=== PATIENT | male | born 1960 | race Caucasian/White ===

== ENCOUNTER → 2017-08-09 | Outpatient (CLI) | payer OTHER ==
--- NOTE | 2017-08-10 04:35 | PAP/PSG TECHNICIAN REPORT ---
[facility] Division Superintendent Polysomnogram Report Study name: None Report date: 08/10/2017 Study date: 08/09/2017 Referring Physician: Chelsea Coronel M.D. Name: MICHELLE BROWN Interpreting Physician: Víctor Coronel M.D. Date of : 1960 Division Superintendent: JOSH Mabry. Sex: Male Age: 56 StudyType: PSG Weight: 281 lbs Height: 56 years, Height 5' 10.5" Neck Circum:17inches BMI: 39.75 Medications: Levoxyl 125mcg, Coreg 6.25mg, Prinivil 20mg, Lasix 40mg, Pravachol 40mg, Coumadin 2.5mg, Cyanocobalamin 1000mcg, Coimadin 5mg8 Patient History Study started on room air with no ETCO2 monitoring in room #8. 56 yr old male here tonight for a possible split psg. He was diagnosed with LIANA 15 years ago and discontinued cpap therapy due to being a stomach sleeper, mask leakage and having many arousals. His ESS=2/24. Neck circ=17inches. Parameters Monitored NPSG: E1-M2, E2-M1, Fp1-M2, Fp2-M1, F3-M2, F4-M2, F4-M1, C3-M2, C4-M2, C4-M1, O1-M2, O2-M2, O2-M1, T3-M2, T4-M1, P3-M2, P4-M1, CHIN1, CHIN2, HR, EKG, Legs, PFLOW, SNOR, FLOW, CFLOW, Tidal Volume, THOR, ABDO, SpO2, PLTH, CPRESS, ETCO2 Wave, ETCO2, pH Sleep Architecture Sleep Stages Time at Lights Off 8:45:36 PM STAGES Time (min.) TST (%) Time at Lights On 4:27:36 AM Wake 66.5 -- Total Recording Time (TRT) 462.00 min. N1 15.5 4 Total Sleep Period (TSP) 425.0 min. N2 208.5 53 Total Sleep Time (TST) 395.5min. N3 109.0 28 Awake Time 66.5 min. REM 62.5 16 Wake after Sleep Onset 42.5 min. Sleep Efficiency (SE) 86 % Sleep Onset Latency (SHIRLENE) 24.0 min. Number of Stage 1 Shifts None Awakenings 14 Stage Changes 70 Number of REM periods 10 REM 62.5 16 REM Latency 81.0 min. NREM 333.0 84 Body Position Analysis Supine Right Left Side Prone Vertical Total Sleep Time (min.) 3.4 0.0 0.0 0.00 458.6 0.0 Total Sleep Time (%) 0% 0% 0% 0 100% N/A% Total Sleep Time REM (min.) 0.0 0.0 0.0 None 62.5 0.0 Total Sleep Time NREM (min.) 0.0 0.0 0.0 None 333.0 0.0 Intermittent Wake (min.) 3.4 0.0 0.0 None 63.1 0.0 Total Sleep Period (%) 0% None None None None None Arousals Myoclonus (PLM) * Events Count Index Events Count Index Spontaneous 5 1 Events Awake (PLMW) 29 26.2 Respiratory 4 0.8 Events Asleep w/ Arousal (PLMA) 6 0.9 PLM 5 1 Events Asleep w/o Arousal (PLMS) 81 12.3 Snoring 3 0 Total Asleep 87 13.2 Total 17 3 Total 116 15 Respiratory Analysis * CA OA MA CH H RERA Total Count 0 3 0 0 14 2 17 Index 0.0 0.5 0.0 0 2.1 0 2.9 Mean Duration 0.0 42.4 0.0 0.00 37.3 36.4 38.0 Longest Duration 0.0 45.6 0.0 0.00 0.0 43.0 87.4 Respiratory Event Summary Total Supine ~Supine Right Left Prone REM NREM Apneas Count 3 N/A 3 N/A N/A 3 3 0 Index 0.5 N/A 0 N/A N/A 0 3 0 Hypopneas (4% Desat) Count 14 N/A 14 N/A N/A 14 12 2 Index 2.1 N/A 2 N/A N/A 2.1 11.5 0.4 Apneas & All Hypopneas Count 17 N/A 17 N/A N/A 17 15 2 Index 2.6 N/A 3 N/A N/A 3 14.4 0.4 Respiratory Events (Forensic Materials Engineer+All Hyp+RERA) Count 17 N/A 19 N/A N/A 19 15 2 Index 2.9 N/A 3 N/A N/A 2.9 14.4 0.7 Respiratory Related Arousal Count 4 N/A 5 N/A N/A 5 4 1 Index 0.8 N/A 1 N/A N/A 1 4 0 Snoring Analysis Supine Right Left Prone REM NREM Total Snore duration 47.7 min Snores count N/A N/A N/A 1,914 256 1,658 1,914 Snore mean duration 1.5 Sec Snores index N/A N/A N/A 290 245.8 298.7 290.4 TST with snoring (%) 12.1% Desaturation Event Summary: Minimum %SpO2 Event Count Mean/Min/Max Duration(sec.) Desaturation Index % Time In Bed > 90 20 37.5 / 7.3 / 60.0 2.9 89.6 86 - 90 4 28.6 / 19.0 / 47.5 5.6 9.4 81 - 85 3 17.9 / 5.8 / 25.0 48.9 0.8 76 - 80 0 N/A 0.0 0.1 71 - 75 0 N/A 0.0 0.0 66 - 70 0 N/A 0.0 0.0 61 - 65 0 N/A 0.0 0.0 56 - 60 0 N/A 0.0 0.0 51 - 55 0 N/A 0.0 0.0 < 50 0 N/A 0.0 0.0 Total REM NREM Awake <50% 0.0 min. 0.0 min. 0.0 min. 0.0 min. 51 - 60% 0.0 min. 0.0 min. 0.0 min. 0.0 min. 61 - 70% 0.0 min. 0.0 min. 0.0 min. 0.0 min. 71 - 80% 0.6 min. 0.6 min. 0.0 min. 0.0 min. 81 - 90% 46.5 min. 13.5 min. 27.9 min. 5.1 min. 91 - 100% 407.2 min. 48.4 min. 305.0 min. 53.8 min. Average 93 92 93 93 Minimum SpO2 79 79 85 81 Desaturation Event Index 3.0 13.4 0.7 4.5 # Desat. Events below 89% 10 7 2 1 Time(%) with Saturation below 89% 2.3 2.0 0.3 0.1 Time(min.) with Saturation below 89% 10.6 9.0 1.2 0.5 Time (mins) REM (mins) NREM (mins) % of TST SpO2 Below 90% 12 8 N4 4.2 SpO2 Below 88% 5 0 0 2 Heart Rate Analysis Min (bpm) Max (bpm) Average (bpm) Awake 57 85 67 NREM 35 82 66 REM 56 79 66 Overall 35 82 66 Supplemental O2 Values Minimum O2 level: None Value Start Time End Time Division Superintendent Comments Mr. Brown slept in the prone position. Cardiac arrhythmia noted, please see print out. Some leg movements were noted. No bruxism noted. Snoring was noted and scored as a 3 on a scale of 1 through 5. (0=no snoring, 5=snoring loud enough to be heard through a closed door or down the [address] way) He did not use the restroom during the night. He stated that he slept about the same as usual. He did not qualify for a split night study. The final report will be interpreted and signed by a sleep physician. The completed physician report will then be placed in the patient medical record. Therapy (cm H2O) 0 TIB (min.) 462.0 TST (min.) 395.5 Sleep Onset (min.) 24.0 REM Onset From Sleep (min.) 81.0 Sleep Efficiency % 86 Wakefulness (%) 14 Wakefulness (min.) 66.5 NREM 1 (%) 4 NREM 1 (min.) 15.5 NREM 2 (%) 53 NREM 2 (min.) 208.5 NREM 3 (%) 28 NREM 3 (min.) 109.0 REM (%) 16 REM (min.) 62.5 # Arousals 17 Arousal Index 3 # Snore 1,914 Snore Index 290.4 AHI 2.6 AHI Supine N/A AHI Non-Supine 3 NREM AHI 0.4 REM AHI 14.4 RDI 2.9 # Obstructive Apnea 3 # Central Apnea 0 # Mixed Apnea 0 # Hypopneas 14 RERAs 2 Total Respiratory Events 22 Time Below SpO2 89% (min.) 10.2 Mean NREM SpO2 (%) 93 Mean REM SpO2 (%) 92 Mean Sleep SpO2 (%) 93 Min NREM SpO2 (%) 85 Min REM SpO2 (%) 79 Position Supine (min.) 3.4 Position Non-supine (min.) 395.5 LM Index Sleep 13.2 LM Index NREM 14.8 LM Index REM 4.8 Mean Heart Rate (bpm) 66 Min Heart Rate (bpm) 35
--- NOTE | 2017-08-13 17:00 | POLYSOMNOGRAPH REPORT ---
REFERRING PERSON: Dr. Thong Coronel. NURSING UNIT COORDINATOR: Laura Vieyra. Ms. Brown is a 56-year-old male for a possible split night sleep study. He was diagnosed with obstructive sleep apnea 15 years ago, but could not tolerate CPAP as he was a stomach sleeper and the mask leaked too much when he would lie on the midline stomach and he was having multiple arousals. His [place] sleepiness scale score on the evening of this study is 2. BMI is 39.75. Following the technical and digital specifications of the [employer] [place] [employer] (AASM) a standard diagnostic polysomnogram was performed monitoring EEG, EOG, EMG (chin and leg deviations), oxygen saturation, body position, digital video, respiratory effort and airflow. The sleep Stage and event scoring was based on the AASM Manual for the Scoring of Sleep and Associated Events 2007 edition. Apneas are defined as a drop in the peak thermal sensor excursion by >90% of baseline for at least 10 seconds. Hypopneas were scored using the 4% oxygen desaturation rule (4A-Medic[employer]) and a decrease in the nasal pressure excursions by >30% of baseline for at least 10 seconds. Respiratory effort-related arousal (RERA's) is defined as a sequence of breaths lasting at least 10 seconds characterized by increasing respiratory effort or flattening of the nasal pressure waveform leading to an arousal from sleep when the sequence of breaths does not meet criteria for an apnea or hypopnea. Apnea Hypopnea index (AHI) is defined as the number of apneas and hypopneas occurring in an hour of sleep. Respiratory disturbance index (RDI) is defined as the number of apneas, hypopneas, and RERA's occurring in an hour of sleep. Mr. Phillips total sleep period time was 425 minutes. Total sleep time was 395.5 minutes. Sleep efficiency was 86%. Latency to sleep onset was 24 minutes with wake after sleep onset of 42.5 minutes. Total non-REM sleep time was 333 minutes. He spent 4% of that time in N1 sleep, 53% in N2 sleep and 28% in N3 sleep. REM latency was 81 minutes. Total REM sleep time was 62.5 minutes or 16% of total sleep time. There were 17 cortical arousals from sleep. Five of these arousals were spontaneous, 4 were due to respiratory events, 5 due to periodic limb movements of sleep and 3 were due to snoring. There were 87 periodic limb movements noted on this test. Limb movement index was 13.2. Limb movement with arousal index was 0.9. There were no central, 3 obstructive and no mixed apnea on this test. There were 14 hypopneas and 2 RERA. Apnea-hypopnea index was 2.6, which is normal. 1914 snoring events were recorded. Total sleep time with snoring was 12.1%. Mean saturation was 93%. There were desaturations less than 89% for 10.6 minutes of recorded time. This occurred during an epoch of REM sleep. Premature atrial complexes were noted on EKG monitoring. Heart rates ranged from a low of 35 beats per minute to a high of 82 beats per minute during sleep. No bruxism was noted. IMPRESSION AND PLAN: A 56-year-old male without evidence of sleep apnea; however, mild nocturnal hypoxemia, especially during REM sleep. 1. This patient may benefit from oxygen therapy at bedtime. An n.p.o. can be performed on room air to confirm the diagnoses should his insurance require it and then he can be started on oxygen at home. It should be continued if it improves his excessive daytime sleepiness or overall energy. YUSUF
== END | disposition home or self-care (01) ==
LOC: C.NEUR 20:00
PROVIDERS: ATTEND Family Medicine
DX: G47.33 Obstructive sleep apnea (adult) (pediatric) (principal); Z79.01 Long term (current) use of anticoagulants; E66.9 Obesity, unspecified; Z68.30 Body mass index [BMI] 30.0-30.9, adult

== ENCOUNTER → 2017-11-30 | Day surgery (SDC) | payer OTHER ==
[2017-11-27 07:38] VITALS: Ht 180.3 cm; Wt 122.7 kg
[~2017-11-30] VITALS: Ht 180.3 cm; Wt 122.7 kg
[~2017-11-30] MED LIST: CALC1TAB9 PO; CARV6.252 PO; CHOL1000 PO; COEN100C7 PO; CYAN100020 PO; FRS/40 PO; GLUCTAB7 PO; LEVO125T5 PO; LIDOCAINE HCL 2% 2 ML VIAL (20MG/ML) ONE; LISI-725 PO; MULT-1093 PO; NIAC500T11 PO; PROPOFOL IV EMULSION 10 MG/ML 20 ML VIAL IV ONE; SODIUM CHLORIDE 0.9% 500ML 500 ML IV ONE; WARF2.5T8 PO; WARF5TAB7 PO
[2017-11-30 08:16] VITALS: TEMP 36.8
--- NOTE | 2017-11-30 08:50 | Endo History and Physical ---
History & Physical Date of Service: Nov 30, 2017. Chief Complaint: screening Referring Physician: Dr. Jason Fulton History of Present Illness Positive cologuard teat Past Surgical History Hx Cardiac Surgery: Yes (HEART CATH/NO STENTS) Hx Internal Defibrillator: Yes (X 2) Hx Pacemaker: Yes (X 2) Hx Abdominal Surgery: Yes (GASTRIC BYPASS) Hx of Implantable Prosthesis: No Hx Post-Op Nausea and Vomiting: No Hx Cancer Surgery: No Hx Thoracic Surgery: No Hx Orthopedic: No Hx Urinary Tract Surgery: No Social History Smoking Status: Never Smoker Hx Substance Use: No Hx Alcohol Use: No Allergies Coded Allergies: Aspirin (Verified Allergy, Unknown, NOSE BLEEDS, 11/27/17) Uncoded Allergies: PEANUTS (Allergy, Unknown, ANAPHYLAXIS, 11/27/17) Current Medications Reported Home Medications Medications Dose Route/Sig Max Daily Dose Days Date Category Coreg (Carvedilol) 6.25 Mg Tab 6.25 Mg PO BID 11/27/17 Reported Niacin 500 Mg Tab 500 Mg PO TID 11/27/17 Reported Jantoven (Warfarin Sodium) 5 Mg Tab 5 Mg PO BID 11/27/17 Reported Jantoven (Warfarin Sodium) 2.5 Mg Tab 2.5 Mg PO 5XWK 11/27/17 Reported Glucosamine Chondroitin (Kfuryyblbzx-Dcevhdqehlm-Hqg C-) 1 Tab Tab 1 Tab PO QAM 11/27/17 Reported Vitamin D3 (Cholecalciferol) 1,000 Unit Tab 1 Tab PO QAM 11/27/17 Reported Vitamin B12 (Cyanocobalamin) 1,000 Mcg Tab 1 Tab PO QAM 11/27/17 Reported Citracal + D3 Maximum (Calcium Citrate-Vitamin D) 1 Tab Tab 1 Tab PO QAM 11/27/17 Reported Centrum Silver 50+Men (Multiple Vitamins W/ Minerals) 1 Tab Tab 1 Tab PO QAM 11/27/17 Reported Coq10 (Coenzyme Q10 (Ubidecarenone)) 100 Mg Cap 1 Cap PO QAM 11/27/17 Reported Lasix (Furosemide) 40 Mg Tab 40 Mg PO QAM 11/27/17 Reported Levothyroxine Sodium 125 Mcg Tab 1 Tab PO QAM 11/27/17 Reported Zestril (Lisinopril) 20 Mg Tab 20 Mg PO QAM 11/27/17 Reported Vital Signs Weight (Kilograms): 122.73 Height (Feet): 5 Height (Inches): 11 Date Time Temp Pulse Resp B/P (MAP) Pulse Ox O2 Delivery O2 Flow Rate FiO2 11/30/17 08:16 36.8 69 20 148/79 (102) 99 Room Air Physical Exam General Appearance: no apparent distress Respiratory/Chest: Auscultation: breath sounds normal Cardiovascular: Heart Auscultation: RRR Abdomen: Inspection & Palpation: soft Liver: non-tender Assessment and Plan stable for colonoscopy
--- NOTE | 2017-11-30 09:23 | Discharge Instructions ---
Endoscopy Patient Instructions Date / Procedure(s) Performed Nov 30, 2017. Colonoscopy Allergy Information Coded Allergies: Aspirin (Verified Allergy, Unknown, NOSE BLEEDS, 11/27/17) Uncoded Allergies: PEANUTS (Allergy, Unknown, ANAPHYLAXIS, 11/27/17) Discharge Date / Findings Nov 30, 2017. several colon polyps removed. Medication Instructions Stopped Medication(s): Last dose Coumadin Provider Instructions Activity Restrictions - No exercising or heavy lifting for 24 hours. - Do not drink alcohol the day of the procedure. - Do not drive a car or operate machinery until the day after the procedure. - Do not make any important decisions or sign important papers in 24 hours after the procedure. Following Day: - Return to full activity which may include returning to work/school. Diet Start your diet with liquids and light foods (jello, soup, juice, toast). Then eat your usual diet if not nauseated. Treatment For Common After Affects For mild abdominal pain, bloating, or excessive gas: - Rest - Eat lightly - Lie on right side Follow-Up Information Follow-up with Dr. Jason Fulton as scheduled Anesthesia Information What You Should Know You have had a procedure that required some medicine to reduce anxiety and discomfort. This treatment is called moderate sedation. After receiving the treatment, you may be sleepy, but you will be able to breathe on your own. The effects of the treatment may last for several hours. Follow these instructions along with Activity/Diet recommendations noted above: * Do NOT do anything where dizziness or clumsiness would be dangerous. * Rest quietly at home today, then you can be up and about tomorrow. * Have a responsible person stay with you the rest of today. * You may have had an I.V. today. If so, you may take the dressing off later today. Recommendations Call your doctor if: * Trouble breathing * Continuous vomiting for more than 24 hours * Temperature above 101 degrees * Severe abdominal pain or bloating * Pain not relieved by pain medicine ordered * There is increased drainage or redness from any incision * A large amount of rectal bleeding greater than 2-3 tablespoons. (If you had a polyp/s removed or have hemorrhoids, a small amount of blood - from the rectum is to be expected.) * You have any unanswered questions or concerns. IN THE EVENT OF A SERIOUS EMERGENCY, GO TO THE NEAREST EMERGENCY ROOM Your discharge instructions were prepared by provider Elroy Khanna. Patient Instructions Signature Page Franky Brown Patient (or Guardian) Signature/Date: I have read and understand the instructions given to me by my caregivers. Caregiver/RN/Doctor Signature/Date: The above-named patient and/or guardian has received patient instructions on this date. + Original Patient Signature Page (only) stays with chart. Please make copy for patient.
[2017-11-30 09:54] VITALS: BP 135/92; PULSE 70; O2SAT 97
--- NOTE | 2017-11-30 10:04 | Anesthesiology Progress Note ---
Anesthesia Post Op Note Date & Time Nov 30, 2017 at 10:04 Vital Signs Pain Intensity: 5 Vital Signs Past 12 Hours Date Time Temp Pulse Resp B/P (MAP) Pulse Ox O2 Delivery O2 Flow Rate FiO2 11/30/17 09:54 70 18 135/92 (106) 97 Room Air 11/30/17 09:39 77 18 135/96 (109) 97 Room Air 11/30/17 09:24 82 20 107/74 (85) 93 Room Air 11/30/17 08:16 36.8 69 20 148/79 (102) 99 Room Air Notes Mental Status: alert / awake / arousable, participated in evaluation Pt Amnestic to Procedure: Yes Nausea / Vomiting: adequately controlled Pain: adequately controlled Airway Patency, RR, SpO2: stable & adequate BP & HR: stable & adequate Hydration State: stable & adequate Anesthetic Complications: no major complications apparent
--- NOTE | 2017-11-30 10:18 | GI REPORT ---
Procedure Date: 11/30/2017 8:06 AM Procedure: Colonoscopy Indications: Positive Cologuard test Medicines: See the Anesthesia note for documentation of the administered medications Complications: No immediate complications. Estimated Blood Loss: Estimated blood loss was minimal. Procedure: Pre-Anesthesia Assessment: - Prior to the procedure, a History and Physical was performed, and patient medications, allergies and sensitivities were reviewed. The patient's tolerance of previous anesthesia was reviewed. - The risks and benefits of the procedure and the sedation options and risks were discussed with the patient. All questions were answered and informed consent was obtained. - Patient identification and proposed procedure were verified prior to the procedure by the physician and the nurse. The procedure was verified in the pre-procedure area. - Pre-procedure physical examination revealed no contraindications to sedation. - After reviewing the risks and benefits, the patient was deemed in satisfactory condition to undergo the procedure. After I obtained informed consent, the scope was passed under direct vision. Throughout the procedure, the patient's blood pressure, pulse, and oxygen saturations were monitored continuously. The scope was introduced through the anus and advanced to the terminal ileum, with identification of the appendiceal orifice and IC valve. The colonoscopy was performed without difficulty. The patient tolerated the procedure well. The quality of the bowel preparation was good. Findings: The perianal and digital rectal examinations were normal. The terminal ileum appeared normal. A 5 mm polyp was found in the cecum. The polyp was semi-sessile. The polyp was removed with a cold snare. Resection and retrieval were complete. Verification of patient identification for the specimen was done by the physician and nurse using the patient's name and medical record number. Estimated blood loss was minimal. A 4 mm polyp was found in the hepatic flexure. The polyp was sessile. The polyp was removed with a cold snare. Resection and retrieval were complete. Verification of patient identification for the specimen was done by the physician and nurse using the patient's name and medical record number. Estimated blood loss was minimal. Two semi-sessile polyps were found at 80 cm proximal to the anus. The polyps were small in size. These polyps were removed with a hot and cold snare. Resection and retrieval were complete. Verification of patient identification for the specimen was done by the physician and nurse using the patient's name and medical record number. Estimated blood loss: none. A 5 mm polyp was found at 70 cm proximal to the anus. The polyp was semi-sessile. The polyp was removed with a hot snare. Resection and retrieval were complete. Verification of patient identification for the specimen was done by the physician and nurse using the patient's name and medical record number. Estimated blood loss: none. A 5 mm polyp was found at 20 cm proximal to the anus. The polyp was semi-pedunculated. The polyp was removed with a hot snare. Resection and retrieval were complete. Verification of patient identification for the specimen was done by the physician and nurse using the patient's name and medical record number. Estimated blood loss: none. No additional abnormalities were found on retroflexion. Impression: - The examined portion of the ileum was normal. - One 5 mm polyp in the cecum, removed with a cold snare. Resected and retrieved. - One 4 mm polyp at the hepatic flexure, removed with a cold snare. Resected and retrieved. - Two small polyps at 80 cm proximal to the anus, removed with a hot and cold snare. Resected and retrieved. - One 5 mm polyp at 70 cm proximal to the anus, removed with a hot snare. Resected and retrieved. - One 5 mm polyp at 20 cm proximal to the anus, removed with a hot snare. Resected and retrieved. Recommendation: - Await pathology results. - Discharge patient to home. Elroy Khanna M.D. Elroy Khanna MD 11/30/2017 10:18:03 AM This report has been signed electronically. Note Initiated On: 11/30/2017 8:06 AM I attest to the content of the Intraoperative Record and orders documented therein, exceptions below
== END | disposition home or self-care (01) ==
LOC: C.GI 07:32
PROVIDERS: ATTEND Internal Medicine Gastroenterology
DX: R19.5 Other fecal abnormalities (principal); D12.0 Benign neoplasm of cecum; D12.3 Benign neoplasm of transverse colon; G47.33 Obstructive sleep apnea (adult) (pediatric); I10 Essential (primary) hypertension; Z86.73 Personal history of transient ischemic attack (TIA), and cerebral infarction without residual deficits; E66.9 Obesity, unspecified; Z91.010 Allergy to peanuts; Z98.84 Bariatric surgery status; Z68.37 Body mass index [BMI] 37.0-37.9, adult; Z98.890 Other specified postprocedural states